=== PATIENT | male | born 1955 | race Caucasian/White ===

== ENCOUNTER 2018-03-29 10:19 | Emergency (ER) | payer MEDICARE, MEDICAID ==
[~2018-03-29] VITALS: Ht 182.8 cm; Wt 115.7 kg
[~2018-03-29 10:19] MED LIST: ATENOLOL50 MG PO; BACTRIM DS 8001 TA1 PO; CYMBALTA60 MG PO; FLOMAX0.4 MG PO; HYDRODIURIL25 MG PO; LIPITOR40 MG PO; Metformin Hydr500 MG PO; VICO10300 PO; VICO75300 PO; ZOFRAN ODT4 MG SL
[2018-03-29] MEDS ORDERED: Motrin,Rufen800 MG PO (12:08)
== END 2018-03-29 12:24 | disposition home or self-care (01) ==
LOC: ED 10:19
DX: M25.771 Osteophyte, right ankle (principal); E11.9 Type 2 diabetes mellitus without complications; Z79.899 Other long term (current) drug therapy

== ENCOUNTER → 2019-01-21 | Outpatient (CLI) | payer MEDICARE ==
[~2019-01-21] MED LIST changes: +Motrin,Rufen800 MG PO
== END | disposition home or self-care (01) ==
LOC: RAD 15:50
DX: M77.32 Calcaneal spur, left foot (principal); M79.89 Other specified soft tissue disorders

== ENCOUNTER 2020-10-10 19:33 | Emergency (ER) | payer MEDICARE ==
[~2020-10-10] VITALS: Ht 182.8 cm; Wt 108.9 kg
[2020-10-10] MEDS ORDERED: ROBAXIN-750750 MG PO (21:02)
[2020-10-10] MEDS ORDERED: NAPROSYN500 MG PO (21:02)
== END 2020-10-10 21:05 | disposition home or self-care (01) ==
LOC: ED 19:33
DX: S16.1XXA Strain of muscle, fascia and tendon at neck level, initial encounter (principal); R51.9 Headache, unspecified; Z79.899 Other long term (current) drug therapy; V89.2XXA Person injured in unspecified motor-vehicle accident, traffic, initial encounter; Y93.89 Activity, other specified; Y92.89 Other specified places as the place of occurrence of the external cause; Y99.8 Other external cause status

== ENCOUNTER 2021-08-30 13:50 | Emergency (ER) | payer OTHER ==
[~2021-08-30 13:50] MED LIST changes: +NAPROSYN500 MG PO; +ROBAXIN-750750 MG PO
[2021-08-30] MEDS ORDERED: FINASTERIDE5 M1 PO (19:27)
[2021-08-30] MEDS ORDERED: NICODERM CQ1 EACH T (19:29)
[2021-08-30] MEDS ORDERED: HYDROXYZINE PAM25 M1 PO (19:30)
[2021-08-30] MEDS ORDERED: PROZAC40 M1 PO (19:33)
[2021-08-30] MEDS ORDERED: PROZAC20 MG PO (19:34)
== END 2021-08-30 14:01 | disposition left against medical advice (07) ==
LOC: ED 13:50
DX: F32.9 Major depressive disorder, single episode, unspecified (principal); Z53.21 Procedure and treatment not carried out due to patient leaving prior to being seen by health care provider

== ENCOUNTER 2021-08-30 14:41 | Emergency (ER) | payer OTHER ==
[~2021-08-30] VITALS: Ht 177.8 cm; Wt 99.8 kg
[2021-08-30 15:13] LABS: BASO # 0.1 10*3/uL (0.0-0.1); BASO % 1.3 % (0.0-1.0); EOS # 0.3 10*3/uL (0.0-0.4); EOS % 3.2 % (1.0-4.0); HEMATOCRIT 46.6 % (42.0-52.0); LYMPH # 1.2 10*3/uL (1.3-4.4); LYMPH % 13.6 % (27.0-41.0); MEAN CELL VOLUME 90.8 fl (80.0-94.0); MEAN CORPUSCULAR HGB CONC 34.1 g/dl (33.0-37.0); MEAN PLATELET VOLUME 10.7 fl (9.6-12.3); MONO # 0.5 10*3/uL (0.1-1.0); NEUT # 6.8 10*3/uL (2.3-7.9); NEUT % 75.5 % (47.0-73.0); PLATELET COUNT AUTOMATED 308 10*3/uL (130-400); RED BLOOD COUNT 5.13 10*6/uL (4.50-5.90); RED CELL DISTRI WIDTH 11.4 % (0-14.5)
[2021-08-30 15:38] LABS: ALBUMIN 3.6 gm/dl (3.1-4.5); ALKALINE PHOSPHATASE 168 U/L (45-117); BUN 13 mg/dl (7-24); CHLORIDE 105 mmol/L (98-107); CREATININE 1.48 mg/dL (0.70-1.30); POTASSIUM 3.9 mmol/L (3.5-5.1); SGOT/AST 21 IU/L (3-35); SGPT/ALT 23 U/L (12-78); SODIUM 135 mmol/L (136-145); TOTAL PROTEIN 7.8 gm/dL (6.4-8.2)
[2021-08-30 15:41] LABS: ACETAMINOPHEN (TYLENOL) < 5.0 ug/ml (10-30)
[2021-08-30 15:45] LABS: ETHYL ALCOHOL < 3.0 mg/dl (<3)
[2021-08-30 16:38] LABS: BILIRUBIN 2+ (Negative); BLOOD Negative (Negative); CLARITY Cloudy (Clear); COLOR Dark Yellow (Yellow); GLUCOSE Negative (Negative); KETONE Trace (Negative); LEUKO ESTERASE 1+ (Negative); NITRITE Positive (Negative); SPECIFIC GRAVITY >= 1.030 (1.001-1.030)
[2021-08-30 16:47] LABS: URINE AMPHETAMINES < 1000 (1000ng/ml); URINE BARBITURATES < 200 (200ng/ml); URINE BENZODIAZEPINES < 200 (200ng/ml); URINE CANNABINOIDS (THC) > 50 (50ng/ml); URINE COCAINE < 300 (300ng/ml); URINE METHADONE < 300 (300ng/ml); URINE OPIATES < 300 (300ng/ml)
[2021-08-30 16:50] LABS: BACTERIA 2+
[2021-08-30 16:53] LABS: URINE PHENCYCLIDINE < 25 (25ng/ml)
[2021-08-30] MEDS ORDERED: FINASTERIDE5 M1 PO (19:27)
[2021-08-30] MEDS ORDERED: NICODERM CQ1 EACH T (19:29)
[2021-08-30] MEDS ORDERED: HYDROXYZINE PAM25 M1 PO (19:30)
[2021-08-30] MEDS ORDERED: PROZAC40 M1 PO (19:33)
[2021-08-30] MEDS ORDERED: PROZAC20 MG PO (19:34)
== END 2021-08-31 12:17 ==
LOC: ED 14:41
PROVIDERS: Student in an Organized Health Care Education/Training Program
DX: F43.21 Adjustment disorder with depressed mood (principal); Z20.822 Contact with and (suspected) exposure to COVID-19; Z79.899 Other long term (current) drug therapy